=== PATIENT | female | born 1940 | race Caucasian/White ===

== ENCOUNTER → 2017-08-06 | Outpatient (CLI) | payer BC ==
[2017-08-06] MEDS: IOHEXOL 240 MG/ML 50ML VIAL. PO (10:45)
[2017-08-06] MEDS: IOHEXOL 300 MG/ML 100ML VIAL. IV (11:36)
[2017-08-06 11:44] LABS: ISTAT CREATININE 0.9 mg/dL (0.6-1.1)
== END | disposition home or self-care (01) ==
LOC: KCIC CT 10:27
DX: K57.30 Diverticulosis of large intestine without perforation or abscess without bleeding (principal); D73.4 Cyst of spleen; D18.03 Hemangioma of intra-abdominal structures; I25.10 Atherosclerotic heart disease of native coronary artery without angina pectoris; I51.7 Cardiomegaly; I70.0 Atherosclerosis of aorta; M62.08 Separation of muscle (nontraumatic), other site
CPT/HCPCS: 74177; 82565; Q9966; Q9967